=== PATIENT | male | born 1975 | race Caucasian/White ===

== ENCOUNTER 2021-03-05 09:54 | Emergency (ER) | payer BC, OTHER ==
[2021-03-05] MEDS ORDERED: Ondansetron PF 4 MG/2 ML Vial ONE (10:46)
[2021-03-05] MEDS ORDERED: Morphine 4 MG/ML VIAL ONE (10:46)
[2021-03-05] MEDS ORDERED: HYDROmorphone 0.5 MG/0.5 ML SYRINGE ONE ×2 (11:43→14:22)
[2021-03-05 13:09] LABS: #Eosinphils 0.2 10x3/uL (0.0-0.5); #Monocytes 0.7 10x3/uL (0.0-1.1); #Neutrophils 5.8 10x3/uL (1.5-8.4); %Basophils 0.3 % (0.0-2.0); %Eosinophils 2.1 % (0.0-6.0); %Lymphocytes 30.1 % (18.0-47.0); %Monocytes 6.9 % (0.0-10.0); %Neutrophils 60.3 % (40.0-75.0); Hemoglobin 12.5 g/dL (13.5-17.5); Mean Corpuscular HGB CONC 33.5 g/dL (32.0-36.0); Mean Corpuscular Hemoglobin 33.1 pg (27.0-33.0); Mean Corpuscular Volume 98.7 fl (81.2-95.1); Mean Platelet Volume 11.1 fl (7.4-10.4); Platelet Count 230 10x3/uL (150-450); RBC Distribution Width 12.1 % (11.5-14.5); Red Blood Cell (RBC) Count 3.78 10x6/uL (4.32-5.72); White Blood Cell (WBC) Count 9.5 10x3/uL (3.5-10.5)
[2021-03-05 13:24] LABS: ALT (SGPT) 10 U/L (8-55); AST (SGOT) 11 U/L (5-34); Albumin 3.7 g/dL (3.5-5.0); Alkaline Phosphatase 51 U/L (40-110); Anion Gap 11 mmol/L (10-20); BUN (Urea Nitrogen) 6 mg/dL (8.9-20.6); Bilirubin, Total 0.5 mg/dL (0.2-1.2); Calc. Creatinine Clearance 0 mL/min (70-130); Calcium 8.2 mg/dL (7.8-10.44); Carbon Dioxide 26 mmol/L (22-29); Chloride 108 mmol/L (98-107); Globulin 2.5 g/dL (2.4-3.5); Glucose 99 mg/dL (70-105); Lipase 18 U/L (8-78); Potassium 3.2 mmol/L (3.5-5.1); Protein, Total 6.2 g/dL (6.0-8.3); Sodium 142 mmol/L (136-145)
== END 2021-03-05 15:05 | disposition home or self-care (01) ==
LOC: CSHERS 09:54
DX: R10.9 Unspecified abdominal pain (principal); R11.2 Nausea with vomiting, unspecified; R19.7 Diarrhea, unspecified; E87.6 Hypokalemia; D64.9 Anemia, unspecified; K21.9 Gastro-esophageal reflux disease without esophagitis; F17.210 Nicotine dependence, cigarettes, uncomplicated; Z79.899 Other long term (current) drug therapy
CPT/HCPCS: 80053; 83605; 83690; 85025; 86140; 96374; 96375; 96376; J1170; J2270; J2405

== ENCOUNTER 2022-08-24 11:03 | Emergency (ER) | payer BC ==
[~2022-08-24 11:03] MED LIST: Iopamidol 300 61% 100 ML VIAL FS ONE
[2022-08-24] MEDS ORDERED: Ketorolac Tromethamine 30 MG/ML VIAL ONE (11:52)
[2022-08-24] MEDS ORDERED: Promethazine HCl 25 MG/ML VIAL ONE (11:52)
[2022-08-24 12:27] LABS: #Monocytes 1.5 10x3/uL (0.0-1.1); %Basophils 0.1 % (0.0-2.0); %Lymphocytes 10.6 % (18.0-47.0); %Monocytes 8.8 % (0.0-10.0); %Neutrophils 79.9 % (40.0-75.0); Hemoglobin 12.9 g/dL (13.5-17.5); Mean Corpuscular HGB CONC 34.1 g/dL (32.0-36.0); Mean Corpuscular Hemoglobin 35.7 pg (27.0-33.0); Mean Corpuscular Volume 104.7 fl (81.2-95.1); Platelet Count 228 10x3/uL (150-450); RBC Distribution Width 13.2 % (11.5-14.5); Red Blood Cell (RBC) Count 3.61 10x6/uL (4.32-5.72); White Blood Cell (WBC) Count 17.5 10x3/uL (3.5-10.5)
[2022-08-24 12:47] LABS: ALT (SGPT) 30 U/L (8-55); AST (SGOT) 15 U/L (5-34); Alkaline Phosphatase 62 U/L (40-110); Anion Gap 17 mmol/L (10-20); BUN (Urea Nitrogen) 17 mg/dL (8.9-20.6); Bilirubin, Total 0.8 mg/dL (0.2-1.2); Calc. Creatinine Clearance 0 mL/min (70-130); Calcium 10.1 mg/dL (7.8-10.44); Carbon Dioxide 25 mmol/L (22-29); Chloride 103 mmol/L (98-107); Estimated GFR 108; Glucose 121 mg/dL (70-105); Lipase 23 U/L (8-78); Sodium 142 mmol/L (136-145)
[2022-08-24 12:58] LABS: Potassium 2.8 mmol/L (3.5-5.1)
[2022-08-24] MEDS ORDERED: HYDROmorphone 0.5 MG/0.5 ML SYRINGE ONE (13:24)
[2022-08-24] MEDS ORDERED: Potassium Chloride 20 MEQ TAB ONE (13:24)
[2022-08-24] MEDS ORDERED: Mag-Al Plus 1200 MG/1200 MG/120 MG/30 ML UDCUP ONE (13:34)
[2022-08-24] MEDS ORDERED: Pantoprazole 40 MG VIAL ONE (13:34)
[2022-08-24 16:08] LABS: Bilirubin Neg (Negative); Blood, Urine 10 (Negative); Clarity Clear (Clear); Glucose, Urine (Dipstick) Normal (Negative); Ketone, Urine 50 mg/dL (Negative); Leukocyte 25 (Negative); Nitrite Negative (Negative); Protein, Urine (Dipstick) 30 mg/dl (Neg-Trace); Specific Gravity, Urine 1.005 (1.005-1.030); Urobilinogen Normal mg/dL (Less than 2); pH, Urine 6.5 (5.0-9.0)
[2022-08-24 16:13] LABS: Bacteria/HPF None Seen HPF (None Seen); RBC/HPF 0-3 HPF (0-3); Squamous Epithelial 0-3 HPF (0-3); WBC/HPF 0-3 HPF (0-3)
== END 2022-08-24 16:45 | disposition home or self-care (01) ==
LOC: CSHERS 11:03
DX: R11.2 Nausea with vomiting, unspecified (principal); M54.9 Dorsalgia, unspecified; K21.9 Gastro-esophageal reflux disease without esophagitis; F17.210 Nicotine dependence, cigarettes, uncomplicated; Z87.442 Personal history of urinary calculi
CPT/HCPCS: 74177; 80053; 81003; 81015; 83605; 83690; 85025; 96365; 96375; C9113; J1170; J1885; J2550; Q9967

== ENCOUNTER 2022-12-09 20:05 | Emergency (ER) | payer BC | END 2022-12-09 20:26 | disposition left against medical advice (07) | LOC: CSHERS 20:05 | DX: Z53.21 Procedure and treatment not carried out due to patient leaving prior to being seen by health care provider (principal) ==

== ENCOUNTER 2022-12-10 04:28 | Observation (INO) | payer BC ==
[2022-12-10 06:03] LABS: #Monocytes 1.2 10x3/uL (0.0-1.1); #Neutrophils 7.4 10x3/uL (1.5-8.4); %Basophils 0.1 % (0.0-2.0); %Lymphocytes 15.3 % (18.0-47.0); %Monocytes 11.3 % (0.0-10.0); %Neutrophils 72.6 % (40.0-75.0); Hemoglobin 11.5 g/dL (13.5-17.5); Mean Corpuscular HGB CONC 35.7 g/dL (32.0-36.0); Mean Corpuscular Hemoglobin 37.2 pg (27.0-33.0); Mean Corpuscular Volume 104.2 fl (81.2-95.1); Mean Platelet Volume 10.6 fl (7.4-10.4); Platelet Count 263 10x3/uL (150-450); RBC Distribution Width 13.2 % (11.5-14.5); Red Blood Cell (RBC) Count 3.09 10x6/uL (4.32-5.72); White Blood Cell (WBC) Count 10.2 10x3/uL (3.5-10.5)
[2022-12-10] MEDS ORDERED: Ketorolac Tromethamine 30 MG/ML VIAL ONE (06:03)
[2022-12-10] MEDS ORDERED: Ondansetron PF 4 MG/2 ML Vial ONE (06:03)
[2022-12-10] MEDS ORDERED: Morphine 4 MG/ML VIAL ONE ×2 (06:03→08:09)
[2022-12-10 06:18] LABS: Bilirubin Neg (Negative); Blood, Urine 10 (Negative); Clarity Clear (Clear); Glucose, Urine (Dipstick) Normal (Negative); Ketone, Urine Negative (Negative); Leukocyte Negative (Negative); Nitrite Negative (Negative); Protein, Urine (Dipstick) 30 mg/dl (Neg-Trace); Urobilinogen Normal mg/dL (Less than 2)
[2022-12-10 06:19] LABS: Anion Gap 13 mmol/L (10-20); BUN (Urea Nitrogen) 11 mg/dL (8.9-20.6); Calc. Creatinine Clearance 0 mL/min (70-130); Carbon Dioxide 25 mmol/L (22-29); Chloride 109 mmol/L (98-107); Estimated GFR 111; Glucose 130 mg/dL (70-105); Potassium 2.7 mmol/L (3.5-5.1); Sodium 144 mmol/L (136-145)
[2022-12-10 06:36] LABS: Bacteria/HPF None Seen HPF (None Seen); RBC/HPF 0-3 HPF (0-3); Squamous Epithelial None Seen HPF (0-3); WBC/HPF 0-3 HPF (0-3)
[2022-12-10] MEDS ORDERED: HYDROcodone/Acetaminophen 7.5/325 mg Tablet PO PRN ×2 (08:02)
[2022-12-10] MEDS ORDERED: Potassium Chloride 10 MEQ in Premix Bag 1 BAG IVPB SCH (08:15)
[2022-12-10] MEDS ORDERED: Potassium Chloride 20 MEQ TAB PO SCH (09:00)
[2022-12-10] MEDS: Tamsulosin HCl 0.4 MG CAP PO SCH (10:08)
[2022-12-10] MEDS: NS 0.9% w/ 40 MEQ KCL 1,000 ML IV SCH ×2 (10:08→17:44)
[2022-12-10] MEDS: Potassium Chloride 10 MEQ in Premix Bag 1 BAG IVPB SCH ×2 (10:08→12:37)
[2022-12-10 10:21] VITALS: BMI 24.3
[2022-12-10] MEDS: Ketorolac Tromethamine 10 MG TAB PO SCH ×3 (12:37→23:52)
[2022-12-10] MEDS: Ondansetron PF 4 MG/2 ML Vial IVP PRN ×2 (12:45→18:26)
[2022-12-10] MEDS ORDERED: HYDROcodone/Acetaminophen 10/325 mg Tablet PO PRN (15:54)
[2022-12-10] MEDS ORDERED: Nicotine 7 MG PATCH TD PRN (15:56)
[2022-12-10] MEDS: Morphine 4 MG/ML VIAL SLOW IVP PRN ×2 (17:02→22:21)
[2022-12-10] MEDS: DULoxetine 30 MG CAP PO SCH (20:38)
[2022-12-10] MEDS: HYDROcodone/Acetaminophen 10/325 mg Tablet PO PRN (20:41)
[2022-12-10] MEDS: cefTRIAXone\\ROCEPHIN 1 GM in Sodium Chloride 0.9% 100 ML IVPB SCH (22:21)
[2022-12-10] MEDS: Zolpidem Tartrate 5 MG TAB PO PRN (22:23)
[2022-12-10] MEDS: Ondansetron ODT 4 MG TAB PO PRN (22:30)
[2022-12-11] MEDS: Ondansetron PF 4 MG/2 ML Vial IVP PRN ×2 (01:26→11:34)
[2022-12-11] MEDS: Morphine 4 MG/ML VIAL SLOW IVP PRN ×5 (01:27→22:04)
[2022-12-11] MEDS: NS 0.9% w/ 40 MEQ KCL 1,000 ML IV SCH ×2 (01:29→17:58)
[2022-12-11] MEDS ORDERED: Pantoprazole 40 MG VIAL IVP SCH ×2 (01:45→21:00)
[2022-12-11 05:27] LABS: #Monocytes 0.9 10x3/uL (0.0-1.1); #Neutrophils 6.3 10x3/uL (1.5-8.4); %Basophils 0.2 % (0.0-2.0); %Lymphocytes 23.4 % (18.0-47.0); %Monocytes 9.2 % (0.0-10.0); %Neutrophils 66.7 % (40.0-75.0); Hemoglobin 10.7 g/dL (13.5-17.5); Mean Corpuscular HGB CONC 34.5 g/dL (32.0-36.0); Mean Corpuscular Hemoglobin 36.8 pg (27.0-33.0); Mean Corpuscular Volume 106.5 fl (81.2-95.1); Mean Platelet Volume 11.1 fl (7.4-10.4); Platelet Count 254 10x3/uL (150-450); RBC Distribution Width 13.2 % (11.5-14.5); Red Blood Cell (RBC) Count 2.91 10x6/uL (4.32-5.72); White Blood Cell (WBC) Count 9.4 10x3/uL (3.5-10.5)
[2022-12-11 05:31] LABS: Anion Gap 12 mmol/L (10-20); BUN (Urea Nitrogen) 14 mg/dL (8.9-20.6); Calc. Creatinine Clearance 124 mL/min (70-130); Calcium 8.6 mg/dL (7.8-10.44); Carbon Dioxide 24 mmol/L (22-29); Chloride 110 mmol/L (98-107); Estimated GFR 111; Glucose 110 mg/dL (70-105); Potassium 3.2 mmol/L (3.5-5.1); Sodium 143 mmol/L (136-145)
[2022-12-11] MEDS: Ketorolac Tromethamine 10 MG TAB PO SCH ×3 (05:56→17:59)
[2022-12-11] MEDS: Ondansetron ODT 4 MG TAB PO PRN (05:57)
[2022-12-11] MEDS: Tamsulosin HCl 0.4 MG CAP PO SCH (08:41)
[2022-12-11] MEDS: DULoxetine 30 MG CAP PO SCH ×2 (08:41→20:20)
[2022-12-11] MEDS ORDERED: Iopamidol 60 ML ONE (14:04)
[2022-12-11] MEDS ORDERED: Midazolam HCl 2 mg/2 ml Vial ONE (15:55)
[2022-12-11] MEDS ORDERED: Fentanyl 100 MCG/2 ML VIAL ONE ×3 (16:05→17:22)
[2022-12-11] MEDS ORDERED: Lidocaine 1% PF 5 ML VIAL ONE (16:06)
[2022-12-11] MEDS ORDERED: Rocuronium Bromide 10 MG/ML (10ML VIAL) ONE (16:06)
[2022-12-11] MEDS ORDERED: PROPOFOL 20 ML ONE (16:06)
[2022-12-11] MEDS ORDERED: Ondansetron PF 4 MG/2 ML Vial ONE (16:39)
[2022-12-11] MEDS ORDERED: Ketorolac Tromethamine 30 MG/ML VIAL ONE (16:39)
[2022-12-11] MEDS ORDERED: SUGAMMADEX SODIUM 200 MG/2 ML VIAL ONE (16:42)
[2022-12-11] MEDS: HYDROcodone/Acetaminophen 10/325 mg Tablet PO PRN (20:20)
[2022-12-11] MEDS ORDERED: Sodium Chloride 0.9% 100 ML ONE (21:59)
[2022-12-11] MEDS ORDERED: cefTRIAXone\\ROCEPHIN 1 GM VIAL ONE (21:59)
[2022-12-11] MEDS: Zolpidem Tartrate 5 MG TAB PO PRN (22:38)
[2022-12-11] MEDS: cefTRIAXone\\ROCEPHIN 1 GM in Sodium Chloride 0.9% 100 ML IVPB SCH (22:38)
[2022-12-12] MEDS: NS 0.9% w/ 40 MEQ KCL 1,000 ML IV SCH (00:15)
[2022-12-12] MEDS: Ondansetron PF 4 MG/2 ML Vial IVP PRN (02:23)
[2022-12-12] MEDS: Morphine 4 MG/ML VIAL SLOW IVP PRN ×2 (02:23→09:17)
[2022-12-12] MEDS: Ketorolac Tromethamine 10 MG TAB PO SCH ×2 (02:24→07:15)
[2022-12-12 05:06] LABS: #Monocytes 0.8 10x3/uL (0.0-1.1); #Neutrophils 9.3 10x3/uL (1.5-8.4); %Basophils 0.2 % (0.0-2.0); %Eosinophils 0.2 % (0.0-6.0); %Lymphocytes 17.8 % (18.0-47.0); %Monocytes 6.3 % (0.0-10.0); Hemoglobin 10.3 g/dL (13.5-17.5); Mean Corpuscular HGB CONC 34.1 g/dL (32.0-36.0); Mean Corpuscular Hemoglobin 36.8 pg (27.0-33.0); Mean Corpuscular Volume 107.9 fl (81.2-95.1); Mean Platelet Volume 11.3 fl (7.4-10.4); Platelet Count 228 10x3/uL (150-450); RBC Distribution Width 12.6 % (11.5-14.5); White Blood Cell (WBC) Count 12.4 10x3/uL (3.5-10.5)
[2022-12-12 05:24] LABS: Anion Gap 11 mmol/L (10-20); BUN (Urea Nitrogen) 12 mg/dL (8.9-20.6); Calc. Creatinine Clearance 124 mL/min (70-130); Calcium 8.1 mg/dL (7.8-10.44); Carbon Dioxide 25 mmol/L (22-29); Chloride 109 mmol/L (98-107); Estimated GFR 111; Glucose 120 mg/dL (70-105); Sodium 142 mmol/L (136-145)
[2022-12-12 05:25] LABS: Hypochromia SLIGHT = 6-15 cells (100X) (0-5/hpf); Macrocytosis SLIGHT = 6-15 cells (100X) (0-5/hpf); Platelet Morphology Comment Appears Adequate
[2022-12-12] MEDS: HYDROcodone/Acetaminophen 10/325 mg Tablet PO PRN (05:45)
[2022-12-12] MEDS ORDERED: Potassium Chloride 20 MEQ TAB PO SCH (08:45)
[2022-12-12] MEDS: DULoxetine 30 MG CAP PO SCH (09:17)
[2022-12-12] MEDS: Tamsulosin HCl 0.4 MG CAP PO SCH (09:17)
[2022-12-12 09:54] VITALS: BP 136/72; TEMP 98.6
== END 2022-12-12 10:54 | disposition home or self-care (01) ==
LOC: CSHERS 04:28 → CSHTELE 08:50
PROVIDERS: ADMIT Family Medicine; ATTEND Internal Medicine
PROC: 0TH98YZ Insertion of Other Device into Ureter, Via Natural or Artificial Opening Endoscopic (ICD-10-PCS; principal; 2022-12-11)
DX: N13.2 Hydronephrosis with renal and ureteral calculous obstruction (principal); E87.6 Hypokalemia; F41.9 Anxiety disorder, unspecified; K21.9 Gastro-esophageal reflux disease without esophagitis; Z79.899 Other long term (current) drug therapy; Z88.1 Allergy status to other antibiotic agents
CPT/HCPCS: 36415; 80048; 81003; 81015; 85025; 96365; 96366; 96374; 96375; 96376; C2625; C9113; G0378; J0696; J1611; J1885; J2250; J2270; J2405; J2704; J3010; J3480; J3490; Q0162; Q9967

== ENCOUNTER 2023-01-17 19:34 | Emergency (ER) | payer BC ==
[2023-01-17 21:15] LABS: #Eosinphils 0.3 10x3/uL (0.0-0.5); #Monocytes 1.2 10x3/uL (0.0-1.1); %Basophils 0.2 % (0.0-2.0); %Eosinophils 1.8 % (0.0-6.0); %Lymphocytes 11.7 % (18.0-47.0); %Monocytes 7.2 % (0.0-10.0); %Neutrophils 78.3 % (40.0-75.0); Hemoglobin 11.1 g/dL (13.5-17.5); Mean Corpuscular HGB CONC 34.2 g/dL (32.0-36.0); Mean Corpuscular Volume 105.5 fl (81.2-95.1); Mean Platelet Volume 9.9 fl (7.4-10.4); Platelet Count 213 10x3/uL (150-450); RBC Distribution Width 11.9 % (11.5-14.5); Red Blood Cell (RBC) Count 3.08 10x6/uL (4.32-5.72); White Blood Cell (WBC) Count 16.5 10x3/uL (3.5-10.5)
[2023-01-17] MEDS ORDERED: levETIRAcetam 500 MG/5 ML VIAL ONE ×2 (21:20→21:28)
[2023-01-17 21:29] LABS: ALT (SGPT) 22 U/L (8-55); AST (SGOT) 33 U/L (5-34); Albumin 3.9 g/dL (3.5-5.0); Alcohol Less than 10 mg/dL (Less than 10); Alkaline Phosphatase 44 U/L (40-110); Anion Gap 12 mmol/L (10-20); BUN (Urea Nitrogen) 10 mg/dL (8.9-20.6); Bilirubin, Total 0.2 mg/dL (0.2-1.2); Calc. Creatinine Clearance 0 mL/min (70-130); Calcium 8.1 mg/dL (7.8-10.44); Carbon Dioxide 22 mmol/L (22-29); Chloride 109 mmol/L (98-107); Estimated GFR 109; Globulin 2.1 g/dL (2.4-3.5); Glucose 85 mg/dL (70-105); Potassium 3.7 mmol/L (3.5-5.1); Salicylate Less than 8.0 mg/dL (15.0-30.0); Sodium 139 mmol/L (136-145)
[2023-01-17 21:56] LABS: Amphetamine Not Detected (NotDetected); Barbiturates Screen Not Detected (NotDetected); Benzodiazepine Screen Not Detected (NotDetected); Cocaine Metabolite Screen Not Detected (NotDetected); Methadone Not Detected (NotDetected); Methamphetamine Not Detected (NotDetected); Opiate Screen Detected (NotDetected); Oxycodone Screen Detected (NotDetected); Phencyclidine (PCP) Not Detected (NotDetected); THC/Cannabinoid Screen Not Detected (NotDetected); Tricyclic Screen Detected (NotDetected)
[2023-01-17] MEDS ORDERED: Ketorolac Tromethamine 30 MG/ML VIAL ONE (22:40)
== END 2023-01-17 23:30 | disposition home or self-care (01) ==
LOC: CSHERS 19:34
DX: S00.83XA Contusion of other part of head, initial encounter (principal); R56.9 Unspecified convulsions; K21.9 Gastro-esophageal reflux disease without esophagitis; X58.XXXA Exposure to other specified factors, initial encounter
CPT/HCPCS: 36415; 70450; 80053; 80306; 80307; 83605; 84146; 84484; 85025; 93005; 96365; 96375; J1885; J1953

== ENCOUNTER 2023-09-07 06:41 | Emergency (ER) | payer BC ==
[2023-09-07] MEDS ORDERED: Ondansetron PF 4 MG/2 ML Vial ONE (07:46)
[2023-09-07] MEDS ORDERED: HYDROmorphone 0.5 MG/0.5 ML SYRINGE ONE ×3 (07:46→11:16)
[2023-09-07 07:56] LABS: #Eosinphils 0.7 10x3/uL (0.0-0.5); #Monocytes 0.9 10x3/uL (0.0-1.1); #Neutrophils 7.8 10x3/uL (1.5-8.4); %Basophils 0.4 % (0.0-2.0); %Eosinophils 6.3 % (0.0-6.0); %Lymphocytes 11.8 % (18.0-47.0); %Monocytes 8.8 % (0.0-10.0); %Neutrophils 72.4 % (40.0-75.0); Hematocrit 33.3 % (38.8-50.0); Hemoglobin 11.3 g/dL (13.5-17.5); Mean Corpuscular HGB CONC 33.9 g/dL (32.0-36.0); Mean Corpuscular Hemoglobin 35.9 pg (27.0-33.0); Mean Corpuscular Volume 105.7 fl (81.2-95.1); Mean Platelet Volume 10.9 fl (7.4-10.4); Platelet Count 203 10x3/uL (150-450); Red Blood Cell (RBC) Count 3.15 10x6/uL (4.32-5.72); White Blood Cell (WBC) Count 10.7 10x3/uL (3.5-10.5)
[2023-09-07 08:13] LABS: ALT (SGPT) 79 U/L (8-55); AST (SGOT) 17 U/L (5-34); Albumin 3.4 g/dL (3.5-5.0); Alkaline Phosphatase 52 U/L (40-110); Anion Gap 12 mmol/L (10-20); BUN (Urea Nitrogen) 12 mg/dL (8.9-20.6); Bilirubin, Total 0.5 mg/dL (0.2-1.2); Calc. Creatinine Clearance 0 mL/min (70-130); Calcium 8.7 mg/dL (7.8-10.44); Carbon Dioxide 24 mmol/L (22-29); Chloride 108 mmol/L (98-107); Estimated GFR 111; Globulin 2.6 g/dL (2.4-3.5); Glucose 106 mg/dL (70-105); Magnesium 1.6 mg/dL (1.6-2.6); Potassium 3.1 mmol/L (3.5-5.1); Sodium 141 mmol/L (136-145)
[2023-09-07] MEDS ORDERED: Iopamidol 370 76% 100 ML VIAL ONE (08:24)
== END 2023-09-07 11:15 | disposition home or self-care (01) ==
LOC: CSHERS 06:41
DX: S32.049D Unspecified fracture of fourth lumbar vertebra, subsequent encounter for fracture with routine healing (principal); S32.059D Unspecified fracture of fifth lumbar vertebra, subsequent encounter for fracture with routine healing; K21.9 Gastro-esophageal reflux disease without esophagitis; Z79.899 Other long term (current) drug therapy
CPT/HCPCS: 36415; 71260; 74177; 80053; 83735; 85025; 96374; 96375; 96376; J1170; J2405

== ENCOUNTER 2023-10-05 18:23 | Emergency (ER) | payer BC ==
[2023-10-05] MEDS ORDERED: Ondansetron PF 4 MG/2 ML Vial ONE (19:23)
[2023-10-05] MEDS ORDERED: Morphine 4 MG/ML VIAL ONE ×3 (19:23→21:51)
[2023-10-05 19:28] LABS: #Basophils 0.1 10x3/uL (0.0-0.2); #Eosinphils 0.3 10x3/uL (0.0-0.5); #Monocytes 0.8 10x3/uL (0.0-1.1); %Basophils 0.5 % (0.0-2.0); %Eosinophils 2.7 % (0.0-6.0); %Lymphocytes 22.1 % (18.0-47.0); %Monocytes 7.4 % (0.0-10.0); %Neutrophils 66.9 % (40.0-75.0); Hematocrit 39.6 % (38.8-50.0); Hemoglobin 13.7 g/dL (13.5-17.5); Mean Corpuscular HGB CONC 34.6 g/dL (32.0-36.0); Mean Corpuscular Hemoglobin 34.8 pg (27.0-33.0); Mean Corpuscular Volume 100.5 fl (81.2-95.1); Platelet Count 255 10x3/uL (150-450); RBC Distribution Width 11.9 % (11.5-14.5); Red Blood Cell (RBC) Count 3.94 10x6/uL (4.32-5.72); White Blood Cell (WBC) Count 10.4 10x3/uL (3.5-10.5)
[2023-10-05 19:41] LABS: ALT (SGPT) 13 U/L (8-55); AST (SGOT) 13 U/L (5-34); Albumin 4.5 g/dL (3.5-5.0); Alkaline Phosphatase 98 U/L (40-110); Anion Gap 13 mmol/L (10-20); BUN (Urea Nitrogen) 10 mg/dL (8.9-20.6); Bilirubin, Total 0.5 mg/dL (0.2-1.2); Calc. Creatinine Clearance 0 mL/min (70-130); Calcium 9.5 mg/dL (7.8-10.44); Carbon Dioxide 23 mmol/L (22-29); Chloride 110 mmol/L (98-107); Estimated GFR 110; Globulin 2.8 g/dL (2.4-3.5); Glucose 103 mg/dL (70-105); Potassium 3.6 mmol/L (3.5-5.1); Protein, Total 7.3 g/dL (6.0-8.3); Sodium 142 mmol/L (136-145)
[2023-10-05] MEDS ORDERED: Orphenadrine Citrate 60 MG/2 ML VIAL ONE (19:53)
[2023-10-05] MEDS ORDERED: Ketorolac Tromethamine 30 MG/ML VIAL ONE ×2 (19:53→21:51)
[2023-10-05] MEDS ORDERED: Lidocaine 4% Patch TD SCH (20:15)
== END 2023-10-05 23:35 | disposition short-term general hospital (02) ==
LOC: CSHERS 18:23
DX: M99.53 Intervertebral disc stenosis of neural canal of lumbar region (principal); M99.54 Intervertebral disc stenosis of neural canal of sacral region; R56.9 Unspecified convulsions; M21.371 Foot drop, right foot
CPT/HCPCS: 72148; 80053; 85025; 86140; 94760; 96374; 96375; 96376; J1885; J2270; J2360; J2405

== ENCOUNTER 2024-01-16 17:12 | Emergency (ER) | payer BC, SELFPAY ==
[2024-01-16 19:01] LABS: #Eosinphils 0.1 10x3/uL (0.0-0.5); #Monocytes 0.7 10x3/uL (0.0-1.1); #Neutrophils 8.6 10x3/uL (1.5-8.4); %Basophils 0.2 % (0.0-2.0); %Eosinophils 1.2 % (0.0-6.0); %Lymphocytes 12.3 % (18.0-47.0); %Monocytes 6.1 % (0.0-10.0); %Neutrophils 79.9 % (40.0-75.0); Hematocrit 39.2 % (38.8-50.0); Hemoglobin 13.1 g/dL (13.5-17.5); Mean Corpuscular HGB CONC 33.4 g/dL (32.0-36.0); Mean Corpuscular Volume 98.7 fl (81.2-95.1); Mean Platelet Volume 10.1 fl (7.4-10.4); Platelet Count 220 10x3/uL (150-450); RBC Distribution Width 13.1 % (11.5-14.5); Red Blood Cell (RBC) Count 3.97 10x6/uL (4.32-5.72); White Blood Cell (WBC) Count 10.8 10x3/uL (3.5-10.5)
[2024-01-16] MEDS ORDERED: Ketorolac Tromethamine 30 MG (1 mL) VIAL ONE (19:06)
[2024-01-16] MEDS ORDERED: Morphine 4 MG/ML VIAL ONE (19:06)
[2024-01-16 19:17] LABS: ALT (SGPT) 25 U/L (8-55); AST (SGOT) 22 U/L (5-34); Alkaline Phosphatase 69 U/L (40-110); Anion Gap 14 mmol/L (10-20); BUN (Urea Nitrogen) 8 mg/dL (8.9-20.6); Bilirubin, Total 0.4 mg/dL (0.2-1.2); Calc. Creatinine Clearance 0 mL/min (70-130); Calcium 8.9 mg/dL (7.8-10.44); Carbon Dioxide 25 mmol/L (22-29); Chloride 105 mmol/L (98-107); Estimated GFR 110; Globulin 2.8 g/dL (2.4-3.5); Glucose 99 mg/dL (70-105); Potassium 3.7 mmol/L (3.5-5.1); Protein, Total 6.8 g/dL (6.0-8.3); Sodium 140 mmol/L (136-145)
[2024-01-16] MEDS ORDERED: HYDROmorphone 0.5 MG/0.5 ML SYRINGE ONE (19:58)
== END 2024-01-16 21:01 | disposition home or self-care (01) ==
LOC: CSHERS 17:12
DX: S22.49XA Multiple fractures of ribs, unspecified side, initial encounter for closed fracture (principal); M54.50 Low back pain, unspecified; W18.30XA Fall on same level, unspecified, initial encounter
CPT/HCPCS: 74176; 80053; 85025; 96374; 96375; J1170; J1885; J2270

== ENCOUNTER 2024-09-11 15:09 | Emergency (ER) | payer BC ==
[2024-09-11] MEDS ORDERED: Ondansetron PF 4 MG/2 ML Vial ONE (16:01)
[2024-09-11] MEDS ORDERED: Ketorolac Tromethamine 30 MG (1 mL) VIAL ONE (16:01)
[2024-09-11 16:04] LABS: #Basophils 0.04 10x3/uL (0.0-0.2); #Eosinophils 0.14 10x3/uL (0.0-0.5); #Monocytes 0.49 10x3/uL (0.0-1.1); #Neutrophils 6.61 10x3/uL (1.5-8.4); %Basophils 0.4 % (0.0-2.0); %Eosinophils 1.5 % (0.0-6.0); %Lymphocytes 19.4 % (18.0-47.0); %Monocytes 5.4 % (0.0-10.0); Hematocrit 36.6 % (38.8-50.0); Hemoglobin 12.5 g/dL (13.5-17.5); Mean Corpuscular HGB CONC 34.2 g/dL (32.0-36.0); Mean Corpuscular Hemoglobin 34.8 pg (27.0-33.0); Mean Corpuscular Volume 101.9 fL (81.2-95.1); Mean Platelet Volume 10.1 fL (7.4-10.4); Platelet Count 222 10x3/uL (150-450); RBC Distribution Width 12.8 % (11.5-14.5); Red Blood Cell (RBC) Count 3.59 10x6/uL (4.32-5.72); White Blood Cell (WBC) Count 9.1 10x3/uL (3.5-10.5)
[2024-09-11 16:16] LABS: ALT (SGPT) 10 U/L (8-55); AST (SGOT) 14 U/L (5-34); Albumin 3.6 g/dL (3.5-5.0); Alkaline Phosphatase 68 U/L (40-110); Anion Gap 14 mmol/L (10-20); BUN (Urea Nitrogen) 10 mg/dL (8.9-20.6); Bilirubin, Total 0.4 mg/dL (0.2-1.2); Calc. Creatinine Clearance 0 mL/min (70-130); Carbon Dioxide 22 mmol/L (22-29); Chloride 109 mmol/L (98-107); Estimated GFR 110; Globulin 3.3 g/dL (2.4-3.5); Glucose 111 mg/dL (70-105); Lipase 16 U/L (8-78); Protein, Total 6.9 g/dL (6.0-8.3); Sodium 142 mmol/L (136-145)
[2024-09-11] MEDS ORDERED: Morphine 4 MG/ML VIAL ONE ×2 (17:09→19:05)
[2024-09-11] MEDS ORDERED: diphenhydrAMINE 50 MG/ML VIAL ONE (17:19)
[2024-09-11 20:20] LABS: Bilirubin Neg (Negative); Blood, Urine Negative (Negative); Clarity Clear (Clear); Glucose, Urine (Dipstick) Normal (Negative); Ketone, Urine Negative (Negative); Leukocyte Negative (Negative); Nitrite Negative (Negative); Protein, Urine (Dipstick) 15 mg/dl (Neg-Trace); Urobilinogen Normal mg/dL (Less than 2)
[2024-09-11 20:27] LABS: Bacteria/HPF Rare-Few HPF (None Seen); CAUTI Indications for Culture Pelvic or flank pain; Mucous/LPF 1+ LPF (<2+); RBC/HPF 0-3 HPF (0-3); Squamous Epithelial 0-3 HPF (0-3); WBC/HPF 0-3 HPF (0-3)
[2024-09-11 20:28] LABS: Urine Culture Reflex No No
== END 2024-09-11 20:35 | disposition home or self-care (01) ==
LOC: CSHERS 15:09
DX: E87.6 Hypokalemia (principal); R10.32 Left lower quadrant pain
CPT/HCPCS: 74177; 80053; 81001; 83690; 85025; 96374; 96375; 96376; J1200; J1885; J2272; J2405; Q9967

== ENCOUNTER 2025-11-03 14:16 | Outpatient (CLI) | payer BC ==
[2025-11-03 15:33] LABS: Hematocrit 36.7 % (38.8-50.0); Hemoglobin 12.1 g/dL (13.5-17.5); Mean Corpuscular Hemoglobin 33.1 pg (27.0-33.0); Mean Corpuscular Volume 100.3 fL (81.2-95.1); Platelet Count 217 10x3/uL (150-450); Red Blood Cell (RBC) Count 3.66 10x6/uL (4.32-5.72); White Blood Cell (WBC) Count 7.36 10x3/uL (3.5-10.5)
[2025-11-03 16:07] LABS: Anion Gap 13 mmol/L (10-20); BUN (Urea Nitrogen) 10 mg/dL (8.9-20.6); Calc. Creatinine Clearance 0 mL/min (70-130); Calcium 8.9 mg/dL (7.8-10.44); Carbon Dioxide 26 mmol/L (22-29); Chloride 105 mmol/L (98-107); Glucose 87 mg/dL (70-105); Potassium 4.2 mmol/L (3.5-5.1); Sodium 140 mmol/L (136-145)
== END 2025-11-03 14:17 | disposition home or self-care (01) ==
LOC: CSHLAB 14:16
PROVIDERS: ATTEND Orthopaedic Surgery
DX: Z01.812 Encounter for preprocedural laboratory examination (principal); M75.111 Incomplete rotator cuff tear or rupture of right shoulder, not specified as traumatic
CPT/HCPCS: 80048; 82306; 85027